=== PATIENT | female | born 1980 | race Two or more races ===

== ENCOUNTER → 2017-04-17 | Outpatient (REF) | payer BC | LOC: M SFHCLERA 18:24 | PROVIDERS: ATTEND Nurse Practitioner Family | DX: R30.0 Dysuria (principal) ==

== ENCOUNTER → 2017-04-19 | Outpatient (REF) | payer BC | LOC: M SFHCLERA 11:32 | PROVIDERS: ATTEND Nurse Practitioner Family | DX: Z53.8 Procedure and treatment not carried out for other reasons (principal) ==

== ENCOUNTER → 2017-07-13 | Outpatient (REF) | payer BC | LOC: M SFHCWAGY 16:03 | PROVIDERS: ATTEND Family Medicine | DX: Z12.4 Encounter for screening for malignant neoplasm of cervix (principal) | CPT/HCPCS: 87491; 87591; G0123 ==

== ENCOUNTER → 2017-12-28 | Day surgery (SDC) | payer BC ==
[~2017-12-28] MED LIST: KETOROLAC 60 MG/2 ML VIAL (J1885) As Ordered; LIDOCAINE 2% INJ 100 MG/5 ML SDV (FOR ANES.) As Ordered; LR 1,000 ML IV; MEPERIDINE INJ 25 MG/ML VIAL (J2175) IV; METOCLOPRAMIDE INJ 10MG/2ML VIAL (J2765) As Ordered; METOCLOPRAMIDE INJ 10MG/2ML VIAL (J2765) IV; MIDAZOLAM INJ 2 MG/2 ML VIAL (J2250) As Ordered; ONDANSETRON 4MG/2ML VIAL (J2405) As Ordered; ONDANSETRON 4MG/2ML VIAL (J2405) IV; PERCOCET 5MG/325MG TAB As Ordered; PERCOCET 5MG/325MG TAB PO; PROPOFOL 200 MG/20 ML VIAL As Ordered; dexameTHASONE 4 MG/ML 1ML VIAL (J1100) As Ordered; ePHEDrine INJ 50 MG/ML VIAL As Ordered; fentaNYL 100 MCG/2 ML INJECTION (J3010) As Ordered; fentaNYL 250 MCG/5 ML INJECTION (J3010) As Ordered
[2017-12-28 09:11] LABS: HEMATOCRIT 42.8 % (36.0-47.0); HEMOGLOBIN 14.2 g/dl (12.0-16.0)
[2017-12-28] MEDS: LR 1,000 ML IV (09:28)
[2017-12-28] MEDS: CEFAZOLIN SOD 1 GM in APPROPRIATE DILUENT 1 EA IV (10:30)
[2017-12-28] MEDS: BUPIVACAINE HCL 0.25% 30 ML VIAL As Ordered (11:43)
[2017-12-28] MEDS: fentaNYL 100 MCG/2 ML INJECTION (J3010) IV (12:05)
[2017-12-28] MEDS: PERCOCET 5MG/325MG TAB PO (12:05)
== END ==
LOC: M SDC 08:43
DX: N39.3 Stress incontinence (female) (male) (principal); N81.10 Cystocele, unspecified; Z87.440 Personal history of urinary (tract) infections
CPT/HCPCS: 57288

== ENCOUNTER → 2017-12-31 | Outpatient (REF) | payer BC | LOC: M LAB REF 13:03 | DX: N39.3 Stress incontinence (female) (male) (principal) | CPT/HCPCS: 87186 ==

== ENCOUNTER 2018-01-03 09:04 | Day surgery (SDC) | payer BC ==
[2018-01-03] MEDS: LR 1,000 ML IV (10:00)
[2018-01-03] MEDS: PIPERACILLIN/TAZOBACTAM SOD 3.375 GM in APPROPRIATE DILUENT 1 EA IV (12:00)
[2018-01-03] MEDS ORDERED: MIDAZOLAM INJ 2 MG/2 ML VIAL (J2250) As Ordered (12:08)
[2018-01-03] MEDS ORDERED: fentaNYL 100 MCG/2 ML INJECTION (J3010) As Ordered (12:08)
[2018-01-03] MEDS ORDERED: dexameTHASONE 4 MG/ML 1ML VIAL (J1100) As Ordered (12:08)
[2018-01-03] MEDS ORDERED: ONDANSETRON 4MG/2ML VIAL (J2405) As Ordered (12:08)
[2018-01-03] MEDS ORDERED: LIDOCAINE 2% INJ 100 MG/5 ML SDV (FOR ANES.) As Ordered (12:08)
[2018-01-03] MEDS ORDERED: ROCURONIUM BROMIDE 50 MG/5 ML VIAL As Ordered (12:08)
[2018-01-03] MEDS ORDERED: KETOROLAC 60 MG/2 ML VIAL (J1885) As Ordered (12:09)
[2018-01-03] MEDS ORDERED: PROPOFOL 200 MG/20 ML VIAL As Ordered (12:09)
[2018-01-03] MEDS ORDERED: PERCOCET 5MG/325MG TAB PO (13:00)
[2018-01-03] MEDS ORDERED: ONDANSETRON 4MG/2ML VIAL (J2405) IV (13:00)
[2018-01-03] MEDS ORDERED: LR 1,000 ML IV ×2 (13:00)
[2018-01-03] MEDS ORDERED: HYDROmorphone HCL 1 MG/ML SYRINGE (J1170) IV (13:00)
[2018-01-03] MEDS ORDERED: fentaNYL 100 MCG/2 ML INJECTION (J3010) IV (13:00)
[2018-01-03] MEDS: ACETAMINOPHEN 500 MG TAB PO (14:10)
== END 2018-01-03 15:30 | disposition home or self-care (01) ==
LOC: M SDC 09:04
DX: R33.9 Retention of urine, unspecified (principal); Z87.440 Personal history of urinary (tract) infections; Z98.51 Tubal ligation status
CPT/HCPCS: 57287

== ENCOUNTER → 2018-01-11 | Outpatient (REF) | payer BC | LOC: M LAB REF 17:05 | DX: N39.3 Stress incontinence (female) (male) (principal) | CPT/HCPCS: 87086 ==

== ENCOUNTER → 2018-03-21 | Outpatient (REF) | payer BC | LOC: M LAB REF 13:13 | DX: N39.3 Stress incontinence (female) (male) (principal) | CPT/HCPCS: 87086 ==

== ENCOUNTER → 2022-07-13 | Outpatient (CLI) | payer BC ==
[~2022-07-13] MED LIST changes: +CIPR-249 PO; +FLOM0.4C39 PO; +HYDR-3713 PO; +IBUP80TA PO; -KETOROLAC 60 MG/2 ML VIAL (J1885) As Ordered; -LIDOCAINE 2% INJ 100 MG/5 ML SDV (FOR ANES.) As Ordered; -LR 1,000 ML IV; -MEPERIDINE INJ 25 MG/ML VIAL (J2175) IV; -METOCLOPRAMIDE INJ 10MG/2ML VIAL (J2765) As Ordered; -METOCLOPRAMIDE INJ 10MG/2ML VIAL (J2765) IV; -MIDAZOLAM INJ 2 MG/2 ML VIAL (J2250) As Ordered; -ONDANSETRON 4MG/2ML VIAL (J2405) As Ordered; -ONDANSETRON 4MG/2ML VIAL (J2405) IV; +OXYBPOW XX; +OXYC1TAB23 PO; -PERCOCET 5MG/325MG TAB As Ordered; -PERCOCET 5MG/325MG TAB PO; -PROPOFOL 200 MG/20 ML VIAL As Ordered; -dexameTHASONE 4 MG/ML 1ML VIAL (J1100) As Ordered; -ePHEDrine INJ 50 MG/ML VIAL As Ordered; -fentaNYL 100 MCG/2 ML INJECTION (J3010) As Ordered; -fentaNYL 250 MCG/5 ML INJECTION (J3010) As Ordered
== END ==
LOC: M SOG 15:03
PROVIDERS: ATTEND Physician Assistant
DX: S62.623D Displaced fracture of middle phalanx of left middle finger, subsequent encounter for fracture with routine healing (principal)